=== PATIENT | male | born 1985 | race Caucasian/White ===

== ENCOUNTER 2024-11-09 01:31 | Emergency (ER) | payer OTHER ==
[~2024-11-09] VITALS: Ht 182.9 cm; Wt 86.2 kg
[2024-11-09] MEDS ORDERED: KETOROLAC TROMETHAMINE INJ 30 MG/ML VIAL ONE (01:55)
[2024-11-09] MEDS: KETOROLAC TROMETHAMINE INJ 30 MG/ML VIAL IM ONE (01:58)
[2024-11-09] MEDS ORDERED: IBUP-1490 PO (02:56)
[2024-11-09 03:07] VITALS: BP 124/95; TEMP 98.1; O2SAT 97
== END 2024-11-09 03:07 | disposition home or self-care (01) ==
LOC: ER 01:37
DX: S20.212A Contusion of left front wall of thorax, initial encounter (principal); W01.0XXA Fall on same level from slipping, tripping and stumbling without subsequent striking against object, initial encounter; Y93.9 Activity, unspecified; Y92.89 Other specified places as the place of occurrence of the external cause; Y99.8 Other external cause status
CPT/HCPCS: 99285; 71250; 96372; 72128; J1885